=== PATIENT | male | born 1980 | race Caucasian/White ===

== ENCOUNTER 2016-08-20 17:32 | Emergency (ER) | payer MEDICAID | END 2016-08-20 19:28 | disposition home or self-care (01) | LOC: D.ER 17:32 | DX: S39.012A Strain of muscle, fascia and tendon of lower back, initial encounter (principal); Y93.83 Activity, rough housing and horseplay; Y93.89 Activity, other specified; Y92.019 Unspecified place in single-family (private) house as the place of occurrence of the external cause; M54.30 Sciatica, unspecified side ==

== ENCOUNTER 2016-09-11 19:51 | Emergency (ER) | payer MEDICAID | END 2016-09-11 21:15 | disposition home or self-care (01) | LOC: D.ER 19:51 | DX: M43.8X4 Other specified deforming dorsopathies, thoracic region (principal); M54.9 Dorsalgia, unspecified; F17.200 Nicotine dependence, unspecified, uncomplicated ==

== ENCOUNTER 2016-10-15 13:07 | Emergency (ER) | payer MEDICAID | END 2016-10-15 14:26 | disposition home or self-care (01) | LOC: D.ER 13:07 | DX: R51 Headache (principal); F17.200 Nicotine dependence, unspecified, uncomplicated ==

== ENCOUNTER 2016-11-07 20:08 | Emergency (ER) | payer MEDICAID | END 2016-11-07 22:30 | disposition home or self-care (01) | LOC: D.ER 20:08 | DX: G44.209 Tension-type headache, unspecified, not intractable (principal); F17.200 Nicotine dependence, unspecified, uncomplicated ==

== ENCOUNTER 2016-12-09 18:28 | Emergency (ER) | payer MEDICAID | END 2016-12-09 21:33 | disposition home or self-care (01) | LOC: D.ER 18:28 | DX: M54.30 Sciatica, unspecified side (principal); M62.838 Other muscle spasm; S39.012A Strain of muscle, fascia and tendon of lower back, initial encounter; X58.XXXA Exposure to other specified factors, initial encounter; Y93.89 Activity, other specified; Y92.89 Other specified places as the place of occurrence of the external cause; M54.5 Low back pain; F17.200 Nicotine dependence, unspecified, uncomplicated ==

== ENCOUNTER 2017-03-14 17:03 | Emergency (ER) | payer MEDICAID | END 2017-03-14 18:07 | disposition home or self-care (01) | LOC: D.ER 17:03 | DX: K02.9 Dental caries, unspecified (principal); K08.89 Other specified disorders of teeth and supporting structures ==